=== PATIENT | male | born 2000 | race Caucasian/White ===

== ENCOUNTER → 2019-05-05 | Outpatient (CLI) | payer BC ==
[2019-05-05 10:16] LABS: HEMATOCRIT 46.5 % (42.0-52.0); HEMOGLOBIN 15.5 g/dl (14.0-18.0); MEAN CELL VOLUME 93.9 fl (80.0-94.0); MEAN CORPUSCULAR HGB 31.3 pg (27.0-31.0); MEAN CORPUSCULAR HGB CONC 33.3 g/dl (33.0-37.0); MEAN PLATELET VOLUME 9.7 fl (9.6-12.3); RED BLOOD COUNT 4.95 10*6/uL (4.50-5.90); RED CELL DISTRI WIDTH 12.1 % (0-14.5); WHITE BLOOD COUNT 6.7 10*3/uL (4.8-10.8)
[2019-05-05 10:47] LABS: ALBUMIN 4.3 gm/dl (3.1-4.5); ALKALINE PHOSPHATASE 80 U/L (45-117); BUN 10 mg/dl (7-24); CHLORIDE 105 mmol/L (98-107); CHOLESTEROL 162 mg/dL (<200); CREATININE 0.96 mg/dL (0.70-1.30); HDL CHOLESTEROL 58 mg/dl (40-60); LDL CHOLESTEROL 91 mg/dL (9-159); SGOT/AST 13 IU/L (3-35); SGPT/ALT 20 U/L (12-78); SODIUM 139 mmol/L (136-145); TOTAL PROTEIN 7.3 gm/dL (6.4-8.2); TRIGLYCERIDES 67 mg/dl (<150); VLDL CHOLESTEROL 13 mg/dL (6-40)
== END | disposition home or self-care (01) ==
LOC: LAB 09:51
PROVIDERS: Family Medicine
DX: R00.2 Palpitations (principal); E55.9 Vitamin D deficiency, unspecified; E78.00 Pure hypercholesterolemia, unspecified; R53.83 Other fatigue

== ENCOUNTER 2020-10-24 13:38 | Emergency (ER) | payer BC ==
[~2020-10-24] VITALS: Ht 177.8 cm; Wt 64.0 kg
[2020-10-24 14:29] LABS: BASO % 0.6 % (0.0-1.0); EOS % 0.3 % (1.0-4.0); HEMATOCRIT 49.6 % (42.0-52.0); LYMPH # 1.6 10*3/uL (1.3-4.4); LYMPH % 21.9 % (27.0-41.0); MEAN CELL VOLUME 93.6 fl (80.0-94.0); MEAN CORPUSCULAR HGB 30.8 pg (27.0-31.0); MEAN CORPUSCULAR HGB CONC 32.9 g/dl (33.0-37.0); MONO # 0.6 10*3/uL (0.1-1.0); MONO % 7.7 % (3.0-9.0); NEUT % 68.9 % (47.0-73.0); PLATELET COUNT AUTOMATED 306 10*3/uL (130-400); RED CELL DISTRI WIDTH 12.2 % (0-14.5); WHITE BLOOD COUNT 7.2 10*3/uL (4.8-10.8)
[2020-10-24 14:46] LABS: ALBUMIN 4.8 gm/dl (3.1-4.5); ALKALINE PHOSPHATASE 84 U/L (45-117); BUN 12 mg/dl (7-24); CHLORIDE 107 mmol/L (98-107); CREATININE 0.96 mg/dL (0.70-1.30); LIPASE 70 U/L (73-393); POTASSIUM 3.7 mmol/L (3.5-5.1); SGOT/AST 10 IU/L (3-35); SGPT/ALT 13 U/L (12-78); SODIUM 141 mmol/L (136-145); TOTAL PROTEIN 8.2 gm/dL (6.4-8.2)
[2020-10-24 14:48] LABS: NT-proBNP < 5.00 pg/mL (0-125); TROPONIN I < 0.015 ng/ml (<0.045)
[2020-10-24 15:35] VITALS: BP 122/82
== END 2020-10-24 20:02 | disposition home or self-care (01) ==
LOC: ED 13:38
PROVIDERS: Emergency Medicine
DX: R00.2 Palpitations (principal); R06.02 Shortness of breath; J45.909 Unspecified asthma, uncomplicated